=== PATIENT | female | born 1950 | race Asian ===

== ENCOUNTER 2020-02-07 10:53 | Inpatient (IN) | payer MEDICAID, MEDICARE ==
[~2020-02-07] VITALS: Ht 152.4 cm; Wt 55.2 kg
[2020-02-07 11:54] LABS: Urine Bacteria NONE SEEN /hpf (None Seen); Urine Blood Negative /uL (Negative); Urine Hyaline Cast FEW /lpf (0 - 2); Urine Mucus FEW (None Seen); Urine Specific Gravity 1.019 (1.001-1.035); Urine WBC <1 /hpf (0 - 5)
[2020-02-07 11:56] LABS: Basophils # (auto) 0 10 ^3/uL (0-0.2); Basophils % (auto) 0.5 % (0.0-2.0); Eosinophils # (auto) 0.1 10 ^3/uL (0-0.8); Eosinophils % (auto) 1.3 % (0.0-7.0); Hematocrit 43.9 % (36.0-46.0); Hemoglobin 14.5 g/dL (12.2-16.2); Lymphocytes # (auto) 2.2 10 ^3/uL (0.4-5.4); Lymphocytes % (auto) 28.4 % (10.0-50.0); Mean Corpuscular Hemoglobin 30.8 pg (28.0-32.0); Mean Corpuscular Hgb Conc. 33.1 g/dL (32.0-36.0); Monocytes # (auto) 0.5 10 ^3/uL (0-1.3); Neutrophils # (auto) 4.9 10 ^3/uL (1.6-8.6); Neutrophils % (auto) 62.8 % (37.0-80.0); Nucleated Red Blood Cells % 0.1 %; Platelet Count (auto) 227 10^3/uL (140-450); Red Blood Cells 4.72 10^6/uL (4.0-5.20); White Blood Cell 7.8 10^3/uL (4.4-10.8)
[2020-02-07 12:11] LABS: INR 0.94 (0.9-1.15); Partial Thromboplastin Time 24.1 sec (23.0-31.2)
[2020-02-07 12:15] LABS: Albumin 4.1 g/dL (3.4-5.0); Anion Gap 8 (5-15); Blood Urea Nitrogen 17 mg/dL (7-18); Carbon Dioxide 25 mmol/L (21-32); Chloride 105 mmol/L (98-107); Glucose 169 mg/dL (74-106); Potassium 3.1 mmol/L (3.5-5.1); Sodium 138 mmol/L (136-145)
[2020-02-07 12:22] LABS: Alanine Aminotransferase 38 U/L (13-56); Alkaline Phosphatase 72 U/L (45-117); Aspartate Aminotransferase 21 U/L (15-37); Bilirubin, Total 1.3 mg/dL (0.2-1.0); GFR African American 85 mL/min; GFR Non-African American 70 mL/min
[2020-02-07] MEDS ORDERED: NITROGLYCERIN 0.4 MG SL TAB SL ONE (12:30)
[2020-02-07] MEDS ORDERED: POTASSIUM EFFERVESENT TAB 25 MEQ PO ONE (13:30)
[2020-02-07] MEDS ORDERED: LORazepam 0.5 MG TAB PO PRN (13:45)
[2020-02-07] MEDS ORDERED: ACETAMINOPHEN 325 MG TAB PO PRN (13:45)
[2020-02-07] MEDS ORDERED: ONDANSETRON HCL 4 MG/2 ML VIAL IV PRN (13:45)
[2020-02-07] MEDS ORDERED: ATORVASTATIN 20 MG TAB PO ONE (13:45)
[2020-02-07] MEDS ORDERED: NITROGLYCERIN 0.4 MG SL TAB SL PRN ×2 (13:45→15:00)
[2020-02-07] MEDS ORDERED: DEXTROSE (50%) 50ML SYRG IV PRN (13:45)
[2020-02-07] MEDS ORDERED: POTASSIUM CHL 20MEQ/100ML 100 ML IV ONE (13:45)
[2020-02-07] MEDS ORDERED: HYDROcodone-ACET 5/325MG TAB PO PRN (13:45)
[2020-02-07] MEDS ORDERED: LACTATED RINGER'S 1,000 ML IV ONE (13:45)
[2020-02-07] MEDS ORDERED: POTASSIUM CHL 20 Meq TABLET PO ONE (13:45)
[2020-02-07] MEDS ORDERED: ALUM & MAG HYDROX-SIMETH LIQ(MAALOX) 30 ML PO PRN (13:45)
[2020-02-07] MEDS ORDERED: METOPROLOL SUCCINATE XL 50 MG TAB PO ONE (13:45)
[2020-02-07] MEDS ORDERED: DOCUSATE SOD 100 MG CAP PO PRN (13:45)
[2020-02-07] MEDS ORDERED: MORPHINE SULF INJ 2 MG/ML SYRINGE 1ML IV PRN ×2 (13:45)
[2020-02-07 15:00] LABS: Cholesterol 138 mg/dL (< 200); Triglycerides 245 mg/dL (< 150)
[2020-02-07 15:03] LABS: HDL Cholesterol 44 mg/dL (40-59); LDL Cholesterol 77 mg/dL (< 100)
--- NOTE | 2020-02-07 15:13 | NUR ---
MS admit from ER GEN GUZMÁN Chrystal admitted to tele/MS after SBAR received. Patient oriented to GATITO ESTES RN primary RN, TELE unit, room 212, bed A, and unit policies regarding patient care and visiting hours. Patient weighed by bedscale and encouraged to call if they need something. All questions and concerns addressed, patient verbalized understanding.
[2020-02-07 15:26] VITALS: BP 113/67
--- NOTE | 2020-02-07 16:00 | NUR ---
CALL FROM MD MAHER: REQUEST TO NOTIFY MD IF PATIENT HAS ANY NEW ONSET OF CHEST PAIN.
[2020-02-07] MEDS: SODIUM CHLORIDE 0.9% 1,000 ML IV SCH (16:09)
[2020-02-07] MEDS ORDERED: METF-370 PO (16:34)
[2020-02-07] MEDS ORDERED: DIPH25CA66 PO (16:34)
[2020-02-07] MEDS ORDERED: EMPA1TAB3 PO (16:34)
[2020-02-07] MEDS ORDERED: HCTZ25T PO (16:34)
[2020-02-07] MEDS ORDERED: LOSA-69 PO (16:34)
[2020-02-07 16:52] VITALS: BP 113/67
[2020-02-07] MEDS: InsuLIN REG 1unit/0.01ml Soln (100units/ml) SC SCH ×2 (17:00→21:45)
[2020-02-07] MEDS: ACCU-CHEK COMFORT CURVE STRIP VI SCH ×2 (17:00→21:44)
--- NOTE | 2020-02-07 18:52 | NUR ---
CARE ENDORSED TO NOC RN.
--- NOTE | 2020-02-07 19:10 | NUR ---
OPENING SHIFT NOTE: Assumed care of patient. Patient awake, alert and oriented x 4. NO s/s of SOB or distress. Bed in lowest locked position with two side rails raised and call capellan within reach. Instructed on POC and encouraged to call for assistance, all questions and concerns addressed, patient verbalizes understanding. Will continue to monitor Q1 hr and PRN.
[2020-02-07 20:00] VITALS: BP 120/74
--- NOTE | 2020-02-07 21:15 | NUR ---
HOSPITALIST PAGED Patient experiencing sudden onset of raised red welts on lower abdomen, chest, and upper extremities. Hospitalist paged. Waiting for call back.
[2020-02-07] MEDS: diphenhdrAMINE HCL 50 MG/1 ML VL IV PRN (21:18)
--- NOTE | 2020-02-07 21:18 | NUR ---
HOSPITALIST MD Lui returned call, updated on patient status and reason for call, new orders received. Will note new orders and continue care.
--- NOTE | 2020-02-07 21:20 | NUR ---
SPOKE WITH FAMILY Spoke to daughter Jessy, password provided, daughter states patient has been experiencing sudden onset of hives and raised red welts at home. She states they "come out of nowhere" and that they were planning to see a primary care physician regarding possible unknown allergy. Daughter states they give her PO Benadryl at home when she has these "reactions" and states that it helps to reduce symptoms. Daughter updated on POC and new order for Benadryl, daughter verbalizes understanding, all questions and concerns addressed. Will continue to monitor Q1 hr and PRN.
[2020-02-07 22:00] VITALS: BP 120/74
[2020-02-07 23:09] LABS: Alcohol, Urine < 3.0 mg/dL (0-10); Amphetamine Screen, Urine NEGATIVE (NEGATIVE); Barbiturate Scree,Urine NEGATIVE (NEGATIVE); Benzodiazephine Screen, Urine NEGATIVE (NEGATIVE); Cannabinoid Screen, Urine NEGATIVE (NEGATIVE); Cocaine Screen, Urine NEGATIVE (NEGATIVE); Opiate Scree,Urine NEGATIVE (NEGATIVE); Phencyclidine Screen, Urine NEGATIVE (NEGATIVE)
[2020-02-08 05:00] VITALS: BP 120/64
[2020-02-08] MEDS: ACCU-CHEK COMFORT CURVE STRIP VI SCH ×4 (06:26→22:22)
[2020-02-08] MEDS: SODIUM CHLORIDE 0.9% 1,000 ML IV SCH (06:26)
[2020-02-08] MEDS: InsuLIN REG 1unit/0.01ml Soln (100units/ml) SC SCH ×4 (06:27→22:00)
[2020-02-08 09:47] VITALS: BP 117/70
[2020-02-08] MEDS: ENOXAPARIN SOD 40 MG/0.4 ML SYRINGE SC SCH (09:48)
[2020-02-08] MEDS: ASPirin 81 mg TAB PO SCH (09:49)
[2020-02-08] MEDS: POTASSIUM CHL 20 Meq TABLET PO SCH (09:49)
[2020-02-08] MEDS ORDERED: METOPROLOL SUCCINATE XL 50 MG TAB PO SCH (10:00)
[2020-02-08] MEDS ORDERED: LISINOPRIL 5 MG TAB PO SCH (10:00)
[2020-02-08 13:00] VITALS: BP 109/69
--- NOTE | 2020-02-08 13:00 | NUR ---
Hospitalist rounded Dr. Mujica rounded on patient. Spoke with her daughter on phone regarding plan of care.
[2020-02-08] MEDS: diphenhdrAMINE HCL 50 MG/1 ML VL IV PRN ×2 (13:19→22:26)
--- NOTE | 2020-02-08 15:00 | NUR ---
Bumper Operator Emilie renteria. She communicated with patient's daughter on phone regarding tests and procedures to be performed.
[2020-02-08 16:24] VITALS: BP 100/60
--- NOTE | 2020-02-08 19:15 | NUR ---
OPENING SHIFT NOTE: Assumed care of patient. Patient awake, alert and oriented x 4. No s/s of SOB or distress. Bed in lowest locked position with two side rails raised and call capellan within reach. Instructed on POC and encouraged to call for assistance, patient verbalized understanding. Will continue to monitor Q1 hr and PRN.
[2020-02-08 20:00] VITALS: BP 102/64
[2020-02-08 21:59] VITALS: BP 102/64
[2020-02-08] MEDS: ATORVASTATIN 20 MG TAB PO SCH (22:26)
[2020-02-09 05:20] VITALS: BP 104/51
[2020-02-09] MEDS: ACCU-CHEK COMFORT CURVE STRIP VI SCH ×4 (06:08→21:51)
[2020-02-09] MEDS: InsuLIN REG 1unit/0.01ml Soln (100units/ml) SC SCH ×4 (06:08→21:51)
[2020-02-09] MEDS ORDERED: ADENOSINE 47 MG in GIVE UN-DILUTED 0 ML IV STA (08:01)
--- NOTE | 2020-02-09 08:10 | NUR ---
STAFF TAKE PT FOR STRESS TEST. REPORT THAT DAUGHTER WAS CONTACTED TO TRANSLATE.
[2020-02-09 09:00] VITALS: BP 120/72
[2020-02-09] MEDS: LOSARTAN POTASSIUM 50 MG TAB PO SCH (10:00)
[2020-02-09] MEDS: ASPirin 81 mg TAB PO SCH (10:29)
[2020-02-09] MEDS: POTASSIUM CHL 20 Meq TABLET PO SCH (10:29)
[2020-02-09] MEDS: ENOXAPARIN SOD 40 MG/0.4 ML SYRINGE SC SCH (10:30)
[2020-02-09 13:00] VITALS: BP 95/58
[2020-02-09 17:07] VITALS: BP 106/63
--- NOTE | 2020-02-09 18:09 | NUR ---
FSBS 104 NO COVERAGE NEEDED. DAUGHTER SHANNON CALLS. UPDATE GIVEN. PT DENIES CP OR RECTAL BLEEDING. DAUGHTER CALLS BACK SHORTLY AFTER UPDATE GIVEN. RELAYS PT CONCERNS REGARDING BEHAVIOR OF ROOM MATE. BEHAVIOR IS PERCEIVED THREATENING AND ABUSIVE DURING THE NIGHT. REQUEST ROOM CHANGE FROM NONPROFIT MANAGER. REASSIGNED TO ROOM 209.
--- NOTE | 2020-02-09 18:57 | NUR ---
MOVED TO ROOM 209
[2020-02-09] MEDS: diphenhdrAMINE HCL 50 MG/1 ML VL IV PRN (20:13)
[2020-02-09] MEDS: ATORVASTATIN 20 MG TAB PO SCH (21:51)
[2020-02-09 22:00] VITALS: BP 96/58
[2020-02-10 05:29] VITALS: BP 109/69
[2020-02-10 05:40] LABS: Hematocrit 40.6 % (36.0-46.0); Hemoglobin 13.7 g/dL (12.2-16.2)
[2020-02-10] MEDS: InsuLIN REG 1unit/0.01ml Soln (100units/ml) SC SCH ×2 (06:35→11:30)
[2020-02-10] MEDS: ACCU-CHEK COMFORT CURVE STRIP VI SCH ×2 (06:35→11:30)
[2020-02-10 09:00] VITALS: BP 114/74
[2020-02-10] MEDS ORDERED: PANTOPRAZOLE 40 MG TAB PO SCH (10:00)
[2020-02-10] MEDS ORDERED: GICOCKTAIL PO (10:03)
[2020-02-10] MEDS ORDERED: POTA-220 PO (10:03)
[2020-02-10] MEDS ORDERED: PANT40T PO (10:03)
[2020-02-10] MEDS: ASPirin 81 mg TAB PO SCH (10:29)
[2020-02-10] MEDS: LOSARTAN POTASSIUM 50 MG TAB PO SCH (10:30)
[2020-02-10] MEDS: ENOXAPARIN SOD 40 MG/0.4 ML SYRINGE SC SCH (10:31)
[2020-02-10] MEDS: POTASSIUM CHL 20 Meq TABLET PO SCH (10:31)
[2020-02-10 11:08] VITALS: BP 114/74
[2020-02-10 12:57] VITALS: BP 110/68
--- NOTE | 2020-02-10 17:24 | NUR ---
PT REMAINED STABLE. V/S WNL. INDEPENDANT WITH ADLS. NO COMPLAINTS. DC HOME TO DAUGHTER.
== END 2020-02-10 16:45 | disposition home or self-care (01) | DRG 392 ==
LOC: ER 10:53 → TELE-CENTR 15:13
PROVIDERS: ADMIT Hospitalist; ATTEND Internal Medicine
DX: K29.70 Gastritis, unspecified, without bleeding (principal); K62.5 Hemorrhage of anus and rectum; E87.6 Hypokalemia; I10 Essential (primary) hypertension; E11.65 Type 2 diabetes mellitus with hyperglycemia; E78.1 Pure hyperglyceridemia; E78.5 Hyperlipidemia, unspecified; K64.9 Unspecified hemorrhoids; Z79.4 Long term (current) use of insulin; Z80.0 Family history of malignant neoplasm of digestive organs
CPT/HCPCS: 36415; 71046; 78452; 80053; 80061; 80307; 81001; 82565; 82962; 83036; 83735; 84443; 84484; 85014; 85018; 85025; 85379; 85610; 85730; 87040; 87086; 93005; 93017; 93306; 97163; G0378; J0153; J1815; J3480